=== PATIENT | female | born 1980 | race Caucasian/White ===

== ENCOUNTER → 2018-12-18 | Outpatient (CLI) | payer BC ==
[2018-12-18 13:38] VITALS: BP 133/86; PULSE 73; TEMP 98.5; BMI 34.2
--- NOTE | 2019-02-25 13:07 | P.HPBAR ---
Bariatric H&P - History & Physicial H&P Date: 12/18/18 History & Physicial: Visit/CC: band fill Patient initial contact: Initial weight: 106.594 kg Initial weight in pounds: 235.00 Height: 5 ft 3 in Initial BMI: 41.6 Last weight: Current weight: 87.543 kg Current weight in pounds: 193.00 Current BMI: 34.2 [place] body weight (based on NIH guidelines): 52.163 kg Excess body weight loss: 35.0% The patient is a 38 year-old F who presents for Bariatric Assessment. She presents today for LAP-BAND adjustment. She currently is hungry. She is requesting a fill of her band. Past Medical History History of Any Multi-Drug Resistant Organisms: None Reported Past Surgical History: Bariatric Surgery, Bowel Resection, Orthopedic Surgery Additional Past Surgical History / Comment(s): Lap band originally placed 2011 (prolapsed and replaced at [facility] in late January 2016) pt's weight had droppd to 93#, spinal cord stimulator due to discectomy L4-L5-S1, possible DDD, Past Anesthesia/Blood Transfusion Reactions: No Reported Reaction Additional Past Anesthesia/Blood Transfusion Reaction / Comm: No blood transfusion to date Past Psychological History: No Psychological Hx Reported Smoking Status: Current every day smoker Past Alcohol Use History: Rare Additional Past Alcohol Use History / Comment(s): 1/2 PPD x 15 years (started 2003) Past Drug Use History: None Reported Surgical - Exam Vital Signs Temp Pulse BP 98.5 F 73 133/86 12/18/18 13:34 12/18/18 13:34 12/18/18 13:34 - General well developed, well nourished, no distress - Eyes PERRL - Abdomen Abdomen: soft, non tender Bariatric Assessment & Plan Plan: A shunt LAP-BAND was just. She has 3 mL added to her band. She will follow-up in 4 weeks. Bariatric Checklist Checklist: Plan: Checklist: EGD: 1. Hiatal hernia: 2. H. Pylori: HgbA1c: Vitamin D: Smoking: Current every day smoker Primary care physician referral: Dr. Tari Basilio ([place]) Psychiatry clearance: Cardiology clearance: Sleep study: Diet journal: VTE risk score: VTE risk level: Rehab needs at discharge:
== END | disposition home or self-care (01) ==
LOC: BARWHC3 13:20
PROVIDERS: ATTEND Surgery
DX: Z46.51 Encounter for fitting and adjustment of gastric lap band (principal); F17.200 Nicotine dependence, unspecified, uncomplicated; Z98.84 Bariatric surgery status
CPT/HCPCS: 99212

== ENCOUNTER → 2019-01-15 | Outpatient (CLI) | payer BC ==
[2019-01-15 15:44] VITALS: BP 135/63; PULSE 87; TEMP 99.3; BMI 34.3
--- NOTE | 2019-01-15 18:19 | P.HPBAR ---
Bariatric H&P - History & Physicial H&P Date: 01/15/19 History & Physicial: Visit/CC: band adjustment Patient initial contact: Initial weight: 106.594 kg Initial weight in pounds: 235.00 Height: 5 ft 3 in Initial BMI: 41.6 Last weight: Current weight: 87.997 kg Current weight in pounds: 194.00 Current BMI: 34.3 [place] body weight (based on NIH guidelines): 52.163 kg Excess body weight loss: 34.1% The patient is a 38 year-old F who presents for Bariatric Assessment. She presents today for lab band follow. She is requesting a fill of her band. She currently feels hungry. Past Medical History History of Any Multi-Drug Resistant Organisms: None Reported Past Surgical History: Bariatric Surgery, Bowel Resection, Orthopedic Surgery Additional Past Surgical History / Comment(s): Lap band originally placed 2011 (prolapsed and replaced at [facility] in late January 2016) pt's weight had droppd to 93#, spinal cord stimulator due to discectomy L4-L5-S1, possible DDD, Past Anesthesia/Blood Transfusion Reactions: No Reported Reaction Additional Past Anesthesia/Blood Transfusion Reaction / Comm: No blood transfusion to date Past Psychological History: No Psychological Hx Reported Smoking Status: Current every day smoker Past Alcohol Use History: Rare Additional Past Alcohol Use History / Comment(s): 1/2 PPD x 15 years (started 2003) Past Drug Use History: None Reported Surgical - Exam Vital Signs Temp Pulse BP 99.3 F 87 135/63 01/15/19 15:42 01/15/19 15:42 01/15/19 15:42 - General well developed, well nourished, no distress - Eyes PERRL - ENT normal pinna - Neck no masses - Respiratory normal expansion - Abdomen Abdomen: soft Bariatric Assessment & Plan Plan: Is LAP-BAND was adjusted. She had 3 mL added to the band. She currently has 6 mL in the band. She'll follow-up in one month. Bariatric Checklist Checklist: Plan: Checklist: EGD: 1. Hiatal hernia: 2. H. Pylori: HgbA1c: Vitamin D: Smoking: Current every day smoker Primary care physician referral: Dr. Tari Basilio ([place]) Psychiatry clearance: Cardiology clearance: Sleep study: Diet journal: VTE risk score: VTE risk level: Rehab needs at discharge:
== END | disposition home or self-care (01) ==
LOC: BARWHC3 13:34
PROVIDERS: ATTEND Surgery
DX: Z46.51 Encounter for fitting and adjustment of gastric lap band (principal); F17.200 Nicotine dependence, unspecified, uncomplicated; Z98.84 Bariatric surgery status
CPT/HCPCS: 99212

== ENCOUNTER → 2019-01-18 | Outpatient (CLI) | payer BC ==
[2019-01-18 10:44] VITALS: RESP 16
--- NOTE | 2019-01-18 11:59 | P.HPBAR ---
Bariatric H&P - History & Physicial H&P Date: 01/18/19 History & Physicial: Visit/CC: Band to tight Patient initial contact: Initial weight: 106.594 kg Initial weight in pounds: 235.00 Height: Initial BMI: Last weight: Current weight: Current weight in pounds: Current BMI: [place] body weight (based on NIH guidelines): Excess body weight loss: The patient is a 38 year-old F who presents for Bariatric Assessment. Patient points of dysphagia. She presents occluded to remove her band. Past Medical History History of Any Multi-Drug Resistant Organisms: None Reported Past Surgical History: Bariatric Surgery, Bowel Resection, Orthopedic Surgery Additional Past Surgical History / Comment(s): Lap band originally placed 2011 (prolapsed and replaced at [facility] in late January 2016) pt's weight had droppd to 93#, spinal cord stimulator due to discectomy L4-L5-S1, possible DDD, Past Anesthesia/Blood Transfusion Reactions: No Reported Reaction Additional Past Anesthesia/Blood Transfusion Reaction / Comm: No blood transfusion to date Past Psychological History: No Psychological Hx Reported Smoking Status: Current every day smoker Past Alcohol Use History: Rare Additional Past Alcohol Use History / Comment(s): 1/2 PPD x 15 years (started 2003) Past Drug Use History: None Reported Surgical - Exam Vital Signs Resp 16 01/18/19 10:43 - Abdomen Abdomen: soft, non tender Bariatric Assessment & Plan Plan: Patient LAP-BAND was adjusted. She had 1.5 mL rubber band. She currently is 4.5 mL in her band. She was able require without difficulty. She'll follow-up in 4 weeks. Bariatric Checklist Checklist: Plan: Checklist: EGD: 1. Hiatal hernia: 2. H. Pylori: HgbA1c: Vitamin D: Smoking: Current every day smoker Primary care physician referral: Dr. Tari Basilio ([place]) Psychiatry clearance: Cardiology clearance: Sleep study: Diet journal: VTE risk score: VTE risk level: Rehab needs at discharge:
== END | disposition home or self-care (01) ==
LOC: BARWHC3 10:03
PROVIDERS: ATTEND Surgery
DX: Z46.51 Encounter for fitting and adjustment of gastric lap band (principal); R10.31 Right lower quadrant pain; F17.200 Nicotine dependence, unspecified, uncomplicated; Z98.84 Bariatric surgery status
CPT/HCPCS: 99212